=== PATIENT | female | born 1960 ===

== ENCOUNTER 2017-01-22 07:28 | Emergency (ER) | payer OTHER ==
[2017-01-22 07:39] VITALS: BMI 27.3
[2017-01-22 07:40] VITALS: RESP 18; TEMP 987
--- NOTE | 2017-01-22 09:08 | ED PDOC ---
Upper Extremity Pain/Injury Time Seen by Provider: 01/22/17 07:35 Chief Complaint (Nursing): Trauma Chief Complaint (Provider): Left hand injury History Per: Patient History/Exam Limitations: no limitations Onset/Duration Of Symptoms: Days (x 2) Current Symptoms Are (Timing): Still Present Additional Complaint(s): Krysta Carrington is a 56 y/o female with a history of seizures and depression, who presents to the emergency department complaining of left hand pain and swelling after sustaining a fall yesterday. Patient reports falling in the shower last night and breaking her fall with left thumb. PMD: Roddy Colón MD Past Medical History Reviewed: Historical Data, Nursing Documentation, Vital Signs Vital Signs: Last Vital Signs Temp 987 F H 01/22/17 07:39 Pulse 77 01/22/17 07:39 Resp 18 01/22/17 07:39 BP 130/80 01/22/17 07:39 Pulse Ox 97 01/22/17 07:39 - Medical History PMH: Asthma, Depression, Diverticulitis, Gastritis, HTN, Seizures Denies: HIV, Chronic Kidney Disease - Surgical History Surgical History: (2) Other surgeries: lower back and neck surgeries - Family History Family History: States: Unknown Family Hx - Social History Current smoker - smoking cessation education provided: No Alcohol: None Drugs: Denies - Home Medications Home Medications: Ambulatory Orders Medication Instructions Recorded Lactulose [Enulose] 20 gm PO DAILY #0 udc 02/08/16 Thiamine [Vitamin B1 Tab] 100 mg PO DAILY #0 tab 02/08/16 Divalproex [Depakote ER] 1,000 mg PO HS #30 ter 02/09/16 traMADol [Ultram] 50 mg PO TID PRN #15 tab 08/26/16 Cephalexin [cephalexin] 500 mg PO QID #28 cap 01/22/17 - Allergies Allergies/Adverse Reactions: Allergies Allergy/AdvReac Type Severity Reaction Status Date / Time codeine Allergy NAUSEA Verified 01/22/17 07:49 Review of Systems ROS Statement: Except As Marked, All Systems Reviewed And Found Negative Musculoskeletal: Positive for: Hand Pain (Left hand pain and swelling) Physical Exam - Reviewed Nursing Documentation Reviewed: Yes - Physical Exam Appears: Positive for: Non-toxic, No Acute Distress Head Exam: Positive for: ATRAUMATIC, NORMAL INSPECTION, NORMOCEPHALIC Skin: Positive for: Normal Color, Warm, Dry Eye Exam: Positive for: EOMI, Normal appearance, PERRL Neck: Positive for: Normal, Painless ROM Cardiovascular/Chest: Positive for: Regular Rate, Rhythm Respiratory: Positive for: Normal Breath Sounds. Negative for: Accessory Muscle Use, Respiratory Distress Extremity: Positive for: Normal ROM, Tenderness (slight tenderness to the left hand), Capillary Refill (< 2 sec), Swelling (minmal), Other (Left hand appears erythematous). Negative for: Calf Tenderness, Deformity Neurologic/Psych: Positive for: Alert, Oriented - ECG O2 Sat by Pulse Oximetry: 97 (RA) Pulse Ox Interpretation: Normal - Radiology X-Ray: Interpreted by Me, Viewed By Me X-Ray Interpretation: No Acute Disease Medical Decision Making Medical Decision Making: Time: 08:29 Initial Impression: Left hand pain Initial Plan: --X-Ray Left Hand 2 view --Ibuprofen 600 mg PO --Reevaluation Time: 10:12 --Left hand appears erythematous --Will prescribe Cephalexin 500 mg PO QID --X-Ray Left Thumb is negative for acute disease in my view, however placed pt in wrist and finger splint and instructed pt to follow up with orthopedist. Clinical Impression: Left thumb sprain Upon provider evaluation patient is medically stable, and requires no further treatment in the ED at this time. Patient will be discharged home with Rx for Cephalexin. Counseling was provided and all questions were answered regarding diagnosis and need for follow up with orthopedist. There is agreement to discharge plan. Return if symptoms persist or worsen. Scribe Attestation: Documented by Ann-Marie Rice, acting as a scribe for Calin Mathis MD Provider Scribe Attestation: All medical record entries made by the Scribe were at my direction and personally dictated by me. I have reviewed the chart and agree that the record accurately reflects my personal performance of the history, physical exam, medical decision making, and the department course for this patient. I have also personally directed, reviewed, and agree with the discharge instructions and disposition. Disposition - Clinical Impression Clinical Impression: Thumb sprain - Patient ED Disposition Is Patient to be Admitted: No Doctor Will See Patient In The: Office Counseled Patient/Family Regarding: Studies Performed, Diagnosis, Need For Followup, Rx Given - Disposition Referrals: Willie Jalloh III, MD [Staff Provider] - Disposition: Routine/Home Disposition Time: 10:00 Condition: IMPROVED Additional Instructions: follow up with orthopedist as instructed for further management return to the ED with any worsening or concerning symptoms. Prescriptions: Cephalexin [cephalexin] 500 mg PO QID #28 cap Instructions: Finger Sprain (ED)
[2017-01-22 10:36] VITALS: BP 128/78; PULSE 78
--- NOTE | 2017-01-22 11:30 | RAD ---
PROCEDURE: Left Hand Radiographs - left thumb dated 01/22/2017. . PE and lab lateral views of the left hand with cone-down view left thumb performed. HISTORY: Left pain sp fall tucker thumb COMPARISON: None. FINDINGS: BONES: Current study reveals a tiny bony density located along the palmar surface of the DIP joint left thumb which could represent a tiny avulsion injury arising from the volar plate of the distal phalanx left thumb. Note that these findings were. JOINTS: Mild degenerative changes 1st MCP joint. SOFT TISSUES: Normal. OTHER FINDINGS: None. IMPRESSION: Suspect small avulsion fracture arising from the volar plate distal phalanx 1st finger discussed with Dr. Mathis at approximately 11:30 am. with written down and read back verification. Note also that this report was also placed in PA review folder for followup.
[2017-01-22 16:55] VITALS: O2SAT 97
== END 2017-01-22 10:36 | disposition home or self-care (01) ==
LOC: H.ER 07:28
DX: S63.602A Unspecified sprain of left thumb, initial encounter (principal); Z86.59 Personal history of other mental and behavioral disorders; J45.909 Unspecified asthma, uncomplicated